=== PATIENT | male | born 1960 | race Caucasian/White ===

== ENCOUNTER 2024-11-18 11:30 | Emergency (ER) | payer MEDICARE, MEDICAID ==
[~2024-11-18] VITALS: Ht 182.9 cm; Wt 90.9 kg
[2024-11-18 11:35] VITALS: BP 110/73; PULSE 77; RESP 18; O2SAT 97
--- NOTE | 2024-11-18 12:22 | Physician Documentation ---
History of Present Illness ~ Chief Complaint: Abscess Stated Complaint: MULTIPLE MED COMPLAINTS Time Seen by MD: 11:43 HPI 64 YEAR OLD MALE PATIENT PRESENTS WITH A COMPLAINT OF ABSCESS ON HIS RIGHT BUTTOCKS. DENIES FEVER REPORTS INCREASED PAIN AND SWELLING Medication Reconciliation Allergies: Coded Allergies: No Known Allergies (Unverified , 11/18/24) Scheduled Cephalexin*Monohydrate* (Keflex*), 1 CAP PO QID Sulfamethoxazole/Trimethoprim (Septra Ds Tab), 1 TAB PO Q12H Physical Exam Vital Signs: Temperature: 99.3, Source: Temporal, Heart Rate: 77, Respiratory Rate: 18, BP: 110/73, Pulse Oximetry: 97, Weight: 90.910 Oxygen Flow Rate: 0 Physical Exam General: Alert, no apparent distress. Neurologic: Oriented x4. Psychiatric: Normal mood and affect. Skin: superior aspect of right buttox notable erythema and raised area 3-4 cm Procedures I & D Procedure : Anesthesia: Lidocaine w/ Epi Blade Size: 11 Prep/Supplies: packing placed Incision: pus drained Tolerated Procedure Well?: yes, no complications Progress Results/Orders Results/Orders Orders - EDWARD WING SKIN FORMER Laceration/I&D Tray Set Up (11/18/24 ) Completed Orders - EDWARD WING SKIN FORMER Lidocaine 1% W/Epi 1:100,000 (Xylocaine (11/18/24 11:55) Sulfamethox/Trimetho. Ds Tab (Septra Ds (11/18/24 13:20) Medications Received in ER Medications (Trade) Dose Ordered Sig/Porsha Route PRN Reason Start Time Stop Time Status Last Admin Dose Admin (Septra DS tab) 1 tab ONCE ONCE PO 11/18/24 13:20 11/18/24 13:21 DC 11/18/24 13:36 1 TAB Vital Signs 11/18/24 11/18/24 11:35 13:56 Temp 99.3 99.3 Pulse 77 Resp 18 B/P (MAP) 110/73 Pulse Ox 97 O2 Flow Rate 0 Medical Decision Making Findings Drained abscess on the right buttocks without any difficulty there was notable purulent discharge I did pack the wound with 2-3 cm of quarter-inch packing Differential Dx:Considerations: Include: Abscess, Bacteremia, Cellulitis, Erysipelas, Felon, Gas gangrene, Hidrademitis suppurativa, Impetigo, Lymphangitis, Osteromyelitis, Paronychia, Septicemia, Other Departure Disposition: HOME / SELF CARE / HOMELESS Impression: Primary Impression: Abscess Additional Impression: Cellulitis Condition: Stable Discharge Instructions: Abscess, Care After Referrals: NO PRIMARY CARE PROVIDER (PCP) Prescriptions Cephalexin*Monohydrate* (Keflex*) 500 Mg Capsule 1 CAP PO QID, #40 CAP Prov: EDWARD WING SKIN FORMER 11/18/24 Sulfamethoxazole/Trimethoprim (Septra Ds Tab) 800 Mg/160 Mg Tablet 1 TAB PO Q12H for 10 Days, #20 TAB Prov: EDWARD WING SKIN FORMER 11/18/24 Signature Scribe Signature: v Attestation: Scribed for Edward Wing Meter Repairer Helper by Edward Michel NP . 11/18/24 18:30 EDWARD WING NP Nov 18, 2024 12:22
[2024-11-18] MEDS: LIDOcaine 1% W/epiNEPHrine 1:100,000 20ml vial SQ ONE (12:43)
[2024-11-18] MEDS ORDERED: CEPH-585 PO (13:17)
[2024-11-18] MEDS ORDERED: SULF1TAB45 PO (13:17)
[2024-11-18] MEDS: sulfamethoxazole/trimethoprim DS (800/160mg) tablet PO ONE (13:36)
[2024-11-18 13:56] VITALS: TEMP 99.3
== END 2024-11-18 13:57 | disposition home or self-care (01) ==
LOC: ER 11:31
DX: L02.31 Cutaneous abscess of buttock (principal); L03.317 Cellulitis of buttock
CPT/HCPCS: 10060; 99283; A6258; A6407; Z7610

== ENCOUNTER 2025-01-11 06:11 | Emergency (ER) | payer MEDICARE, MEDICAID ==
[~2025-01-11] VITALS: Ht 182.9 cm; Wt 86.0 kg
[~2025-01-11 06:11] MED LIST: CEPH-585 PO
--- NOTE | 2025-01-11 06:40 | Physician Documentation ---
History of Present Illness ~ Chief Complaint: Dizziness Stated Complaint: DIZZY M BLS Time Seen by MD: 06:21 HPI This is a 64-year-old gentleman who presents for evaluation of dizziness that he describes as spinning sensation, counter-clockwise, that has been present for approximately a day, no obvious trigger provocation. It happens when he sits up, it resolves when he lays down. Did not attempt to treat it. He states that he has not has a chance to eat or drink anything in the last two days. Denies any headache, chest pain, difficulty breathing, nausea, vomiting, diarrhea, abdominal pain. He smokes, has COPD, he uses marijuana but denies drug use or alcohol use. Medication Reconciliation Allergies: Coded Allergies: No Known Allergies (Unverified , 11/18/24) Scheduled Cephalexin*Monohydrate* (Keflex*), 1 CAP PO QID Review of Systems ROS 10 point review of systems was performed and unless noted above in HPI is n egative for acute process/complaint. Physical Exam Vital Signs: Temperature: 98.2, Source: Temporal, Heart Rate: 61, Respiratory Rate: 15, BP: 131/83, Pulse Oximetry: 98, Weight: 86.000 Physical Exam GENERAL: Awake, alert, oriented, GCS 15, no apparent distress, non-toxic appearing, answers questions, follows commands appropriately. Examined in bed 2. HEENT: Atraumatic, normocephalic, pupils equal, extraocular muscles intact, sclerae anicteric, mucus membranes moist, oropharynx is clear, no stridor. NECK: supple, full active range of motion, trachea midline, no thyromegaly, no lymphadenopathy, no JVD. CARDIOVASCULAR: regular rate/rhythm, no murmurs/gallops/rubs, Pulses are 2+ in all extremities and symmetric. Capillary refill less than 2 seconds. PULMONARY: Nonlabored, good air movement ,no respiratory distress, speaking in full sentences, clear to auscultation bilaterally, no wheezing, no ronchi, no rales, no accessory muscle use. GASTROINTESTINAL: Soft, non-tender, non-distended, normal active bowel sounds, no organomegaly, no pulsatile masses, no CVA tenderness. NEUROLOGIC: Lucid with normal mental status. Normal facial symmetry. Moves all extremities symmetrically and with purpose. No truncal ataxia. Speech is fluid without evidence of dysarthria or aphasia, no focal deficits appreciated. MUSCULOSKELETAL: There is full range of motion of all extremities. There is no joint pain or joint swelling or joint erythema. There is no muscle pain or t enderness or swelling. EXTREMITIES: warm, well-perfused, no cyanosis, no clubbing, no edema, no acute deformities. Skin: warm, dry, no rashes or lesions, no jaundice, no petechiae orpurpura. No ecchymosis. PSYCHIATRIC: Normal affect, normal insight, normal concentration. Focused exam: [] Progress Results/Orders Results/Orders Orders - FARTUN DOMINGO DO * Orthostatic Vitals* Q12H (01/11/25 06:37) Ct Head (01/11/25 09:20) Completed Orders - FARTUN DOMINGO DO Electrocardiogram (01/11/25 06:36) Cbc/Diff (01/11/25 06:36) Hs Troponin I W Calculations (01/11/25 06:36) CMP (01/11/25 06:36) Meclizine Tablets (Antivert Tablet) (01/11/25 06:40) Normal Saline 1000ml (0.9% Sodium Chlori (01/11/25 08:30) Normal Saline 1000ml (0.9% Sodium Chlori (01/11/25 08:35) Ct Head (01/11/25 09:20) Medications Received in ER Medications (Trade) Dose Ordered Sig/Porsha Route PRN Reason Start Time Stop Time Status Last Admin Dose Admin (Antivert tablet) 25 mg ONCE ONCE PO 01/11/25 06:40 01/11/25 06:41 DC 01/11/25 06:55 25 MG Sodium Chloride 1,000 ml @ 1,000 mls/hr ONCE ONCE IV 01/11/25 08:30 01/11/25 09:29 DC 01/11/25 08:38 1,000 MLS/HR Vital Signs 01/11/25 01/11/25 01/11/25 01/11/25 06:18 06:49 06:55 06:57 Temp 98.2 98.2 Pulse 61 53 53 59 Resp 15 11 18 B/P (MAP) 131/83 122/77 113/84 (94) 113/74 Pulse Ox 98 95 O2 Flow Rate 0 01/11/25 01/11/25 01/11/25 08:40 10:14 12:00 Temp 98.2 98.2 Pulse 55 65 87 Resp 20 20 18 B/P (MAP) 116/77 (90) 108/63 (78) 133/74 (93) Pulse Ox 97 99 98 O2 Flow Rate 0 0 0 Laboratory Tests Test 01/11/25 06:53 White Blood Count 6.9 Red Blood Count 5.56 Hemoglobin 15.4 Hematocrit 46.5 Mean Corpuscular Volume 83.7 Mean Corpuscular Hemoglobin 27.7 Mean Corpuscular Hemoglobin Concent 33.1 Red Cell Distribution Width 17.4 H Platelet Count 217 Mean Platelet Volume 7.5 Neutrophils (%) (Auto) 57.0 Lymphocytes (%) (Auto) 27.9 Monocytes (%) (Auto) 9.6 Eosinophils (%) (Auto) 4.1 Basophils (%) (Auto) 1.4 H Neutrophils # (Auto) 4.0 Lymphocytes # (Auto) 1.9 Monocytes # (Auto) 0.7 Eosinophils # (Auto) 0.3 Basophils # (Auto) 0.1 CBC Comment Sodium Level 137 Potassium Level 4.1 Chloride Level 103 Carbon Dioxide Level 28.5 Anion Gap 6 L Blood Urea Nitrogen 12 Creatinine 0.91 Estimated GFR/1.73 m2 84 BUN/Creatinine Ratio 13.2 Glucose Level 90 Calcium Level 8.8 Total Bilirubin 0.7 Aspartate Amino Transf (AST/SGOT) 19 Alanine Aminotransferase (ALT/SGPT) 18 Alkaline Phosphatase 105 Troponin I High Sensitivity 14 Total Protein 6.6 Albumin 3.3 L Globulin 3.3 Albumin/Globulin Ratio 1.0 L Chemistry Comments EKG/XRAY/CT/US/VASC/MRI EKG : Additional Comment EKG was obtained and interpreted by myself shows sinus bradycardia, rate of 53, normal MI interval, borderline QRS of 113, no QT prolongation, borderline left axis, no STEMI Medical Decision Making Findings Facility Status: ED Holds, [facility] process The plan was discussed with the patient, who demonstrates clear understanding of the plan and is in agreement with the plan unless otherwise noted in the chart. All questions have been answered, all concerns were addressed unless otherwise documented. I was available throughout their ED stay for frequent reassessment and questions. Differential Diagnoses (considered and possible or likely): [Dehydration, orthostatics, vasovagal, vertigo, electrolyte derangement] ??Differential Diagnoses (considered and unlikely, not requiring evaluation cu rrently): [No evidence of lateralizing signs, no trauma, unlikely intracranial process] MDM Data Please see [facility] for the following: Independent Historians and external Records Review. Historian: [Patient] Independent Historians: ?[Record review] Medication Management: [Reviewed medication list] Social History and determinants: [Reviewed] Please see the body of the note for the following: Any independent interpretations of ECG, imaging studies. All vitals signs/haemodynamics, ordered tests were independently reviewed and interpreted by myself. Nursing triage complaint and vitals reviewed, additional nursing notes were reviewed as available and I agree unless otherwise noted or documented in contra diction in the chart Vital Signs: Independently reviewed Labs: Independently interpreted Imaging: Independently interpreted Old Medical Records: Independently reviewed, see [facility] for relevant summary and information Pulse Oximetry: [100%] interpreted as [normal on room air] by me [Manager Engine: [Regular Rate, Regular rhythm, no ectopy, NSR] reviewed and interpreted by me] Additionally notably showing: [Hemodynamically stable. Unremarkable laboratory workup. Negative troponin. Negative CT head.] Tests considered but not ordered include: [None] Social Determinants of Health Impact: Patient was evaluated in [facility], or [facility] [place] to healthcare due to below par ratio of patient to medical providers. [] Comorbid Conditions Impacting Present Evaluation and Care/Treatment: [Multiple, see past medical history] Management Discussions with other Healthcare Providers: [None] Treatment and Disposition Medication Management (Given or considered): [Fluid resuscitation was provided for treatment of clinically and/or laboratory apparent dehydration.]. See EMR for details Consideration for Hospitalization/Escalation/Deescalation of Care: Admission for observation has been considered, [however the patient is able to tolerate p.o., their symptoms are controlled, they are able to rely on oral medications, and their chief complaint/diagnosis can be managed on outpatient basis.] ?ED Course:?[Symptoms improve although he is still dizzy with the position change.] ?Shared decision making:?[Patient is hemodynamically stable for discharge home with follow with their primary care provider. [ ] Specific and cautious return precautions provided and discussed with full understanding. Any incidental findings were also discussed and follow up recommendations given. [] All questions answered. Patient/family were able to verbalize back return precautions. Patient/family agree to plan. Copies of imaging and laboratory studies were provided.] Code status:?FULL Please see the full Electronic Medical Record for full details of nursing documentation, medications list, other records of complete past medical history and conditions, vital signs, laboratory studies, and any radiologic study interpretations by radiologists. Portions of this note were completed using [employer] dictation software and as a result there may exist minor errors in spelling. I have reviewed elements of past family and social history and agree as included in note. Departure Disposition: 01 HOME / SELF CARE / HOMELESS Impression: Primary Impression: Dizziness Condition: Improved Discharge Instructions: Dizziness Referrals: NO PRIMARY CARE PROVIDER (PCP) Education Educated: Patient Educated regarding: diagnosis, treatment, prognosis, need for follow up Signature Scribe Signature: No scribe Attestation: This note accurately reflects clinical decisions, work performed by myself, DO CHAYO Hendrickson NICHOLAS M DO Jan 11, 2025 06:40
--- NOTE | 2025-01-11 06:43 | ELECTROCARDIOGRAPH REPORT ---
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
[2025-01-11 07:03] LABS: MEAN PLATELET VOLUME 7.5 FL (7.4-10.4); RED CELL DISTRIBUTION WIDTH 17.4 % (11.5-14.5)
[2025-01-11 07:24] LABS: CREATININE 0.91 MG/DL (0.60-1.10); TOTAL CARBON DIOXIDE 28.5 MMOL/L (24-32); eCRCL 89 ML/MIN; eGFR 84 ML/MIN
[2025-01-11] MEDS: normal saline 1000ml 1,000 ML IV ONE ×2 (08:38→08:39)
[2025-01-11 10:14] VITALS: TEMP 98.2
--- NOTE | 2025-01-11 13:10 | RADIOLOGY REPORT ---
CT brain without contrast CLINICAL INDICATION: Disequilibrium FINDINGS: The study was performed in a multidetector scanner. This study performed taking axial image s from the skull base up to the vertex. Both brain and bone windows are photographed. Dose lowering techniques have been used including automated exposure control and adjustment of mA and /or KV according to patient size. Normal and symmetrical shape and density of brain parenchyma above and below the tentorium is seen. T here is no mass, midline shift or hydrocephalus. No intra/extra-axial collections demonstrated. There is no intracranial hemorrhage. The calvarium is intact. There is mucosal thickening with possible po lyp or retention cysts in the right maxillary sinus. IMPRESSION: 1. Mild cortical atrophy. No acute intracranial pathology. Computed Tomographic Radiation Dosimetry Report: Total CTDI vol = 66 mGy Total DLP = 1204 mGy-cm All CT scans at this medical facility are performed using dose modulation techniques as appropriate to a performed exam including the following: Automated exposure control was utilized; adjustment of the MA and/or KvP according to patient size; and use of iterative reconstruction technique.
[2025-01-11 14:07] VITALS: BP 138/80; PULSE 57; RESP 17; O2SAT 97
== END 2025-01-11 14:12 | disposition home or self-care (01) ==
LOC: ER 06:11
DX: R42 Dizziness and giddiness (principal); J44.9 Chronic obstructive pulmonary disease, unspecified; F17.200 Nicotine dependence, unspecified, uncomplicated
CPT/HCPCS: 36415; 70450; 80053; 84484; 85025; 93005; 96360; 99285; J7030; J8597